=== PATIENT | female | born 1965 | race Caucasian/White ===

== ENCOUNTER 2017-01-22 09:48 | Day surgery (SDC) | payer OTHER ==
[2017-01-22] MEDS ORDERED: PROPOFOL 10 MG/ML VIAL IV ONE (09:49)
[2017-01-22] MEDS ORDERED: LIDOCAINE 2% MDV (20MG/ML) 20ML VIAL IV ONE (09:49)
--- NOTE | 2017-01-22 13:40 | Operative Note ---
DATE OF SURGERY: 01/22/2017 OPERATION: Incomplete COLONOSCOPY due to ventral hernia. PREOPERATIVE DIAGNOSIS: Hematochezia. POSTOPERATIVE DIAGNOSES: 1. Poor prep. 2. Incomplete colonoscopy due to ventral hernia and colonic distortion. PROCEDURE: After informed consent was obtained from the patient, she was placed in the left lateral decubitus position in the endoscopy suite, sedated and monitored by the department of anesthesia. Digital rectal exam was unremarkable. A well-lubricated [id number] colonoscope was inserted into the rectum and advanced to the proximal transverse colon. Despite abdominal pressure, I was unable to navigate the colon due to distortion which I believe is related to her ventral hernia. There appeared to be a hernia apex which I was reluctant to try to traverse due to the difficulty and concern of potential complications from attempts. As a result, the endoscope was retracted through the transverse colon, descending colon, sigmoid colon, and rectum. The preparation quality was poor. In a number of areas, despite rinsing and aspiration, colonic mucosa was obscured due to the prep quality. Polyps may have been missed as a result. J-turn views of the anorectum were unremarkable. No underlying lesions were seen. The rectum in forward view was unremarkable. The endoscope was removed from the patient. RECOMMENDATIONS: The patient should have a repeat exam but this would be impossible without repair of her abdominal hernia. Apparently, this is being deferred until the patient achieves some degree of weight loss. At some point she should have her colonoscopy repeated. I am not sure that a CT colonography would be helpful at this point but I will discuss this matter with her. As always, thank you for allowing me to participate in the healthcare of your patients. CC: CARLOS Catherine
== END 2017-01-22 11:28 | disposition home or self-care (01) ==
LOC: HOP 09:48
PROVIDERS: ATTEND Internal Medicine Gastroenterology
DX: K92.1 Melena (principal); Z53.09 Procedure and treatment not carried out because of other contraindication; I10 Essential (primary) hypertension; E78.00 Pure hypercholesterolemia, unspecified; E11.9 Type 2 diabetes mellitus without complications; Z79.84 Long term (current) use of oral hypoglycemic drugs
CPT/HCPCS: 81025

== ENCOUNTER 2018-11-25 12:06 | Day surgery (SDC) | payer BC ==
[2018-11-25] MEDS ORDERED: LIDOCAINE 2% MDV (20MG/ML) 20ML VIAL IV ONE (12:07)
[2018-11-25] MEDS ORDERED: MIDAZOLAM HCL 2MG/2ML VIAL IV ONE (12:07)
[2018-11-25] MEDS ORDERED: PROPOFOL 10 MG/ML VIAL IV ONE (12:07)
[2018-11-25 14:41] LABS: % SATURATION 16 % (20-50); ALB/GLOB RATIO 1.5 (1.1-1.8); ALBUMIN 4.5 g/dL (4.0-5.0); ALKALINE PHOSPHATASE 84 U/L (35-104); ALT/SGPT 11 U/L (<33); AST/SGOT 13 U/L (10.0-35.0); BLOOD UREA NITROGEN 10 mg/dL (6-20); CREATININE 0.8 mg/dL (0.5-0.9); EST GLOMERULAR FILTRATION RATE > 60 mL/min; GLUCOSE,RANDOM 103 mg/dL (74-109); TOTAL PROTEIN 7.6 g/dL (6.6-8.7)
[2018-11-25 14:56] LABS: FERRITIN 14.76 ng/mL (13-150)
--- NOTE | 2018-11-26 15:41 | Operative Note ---
OPERATION: COLONOSCOPY. PREOPERATIVE DIAGNOSIS: History of anemia and colon cancer screening. POSTOPERATIVE DIAGNOSES: 1. Redundant colon. 2. Fair preparation. 3. No obvious abnormalities otherwise noted. PROCEDURE: After informed consent was obtained from the patient, she was placed in the left lateral decubitus position in the endoscopy suite, sedated and monitored by the department of anesthesia. Digital rectal exam was unremarkable. A well-lubricated [id number] colonoscope was inserted into the rectum and advanced to the cecum. Transabdominal pressure was required. The colon was quite tortuous, redundant, and preparation quality was fair at best. No cecal lesions were noted. The ileocecal valve was unremarkable. The appendiceal orifice was unremarkable. The ascending colon, transverse colon, descending colon, sigmoid colon, and rectum were carefully inspected. No polyps, mass lesions, or inflammation was seen. The rectum was unremarkable in forward and J-turn views. RECOMMENDATIONS: I would recommend a repeat colonoscopy in 3 years due to a fair prep. I also believe she would benefit from an upper endoscopy and also will check iron studies and vitamin levels given her anemia. As always, thank you for allowing me to participate in the healthcare of your patients. EUGENIE
== END 2018-11-25 13:55 | disposition home or self-care (01) ==
LOC: HOP 12:06
PROVIDERS: ATTEND Internal Medicine Gastroenterology
DX: Z12.11 Encounter for screening for malignant neoplasm of colon (principal); Q43.8 Other specified congenital malformations of intestine; Z86.2 Personal history of diseases of the blood and blood-forming organs and certain disorders involving the immune mechanism; E11.9 Type 2 diabetes mellitus without complications; I10 Essential (primary) hypertension; E03.9 Hypothyroidism, unspecified; E78.00 Pure hypercholesterolemia, unspecified
CPT/HCPCS: 00812; 80053; 82607; 82728; 82746; 83036; 83550; G0121